=== PATIENT | male | born 1975 | race Caucasian/White ===

== ENCOUNTER 2019-07-12 23:03 | Emergency (ER) | payer SELFPAY ==
[2019-07-12 23:09] VITALS: BP 141/92
[2019-07-12] MEDS ORDERED: IPRATROPIUM/ALBUTEROL 3 ML NEB INH STA (23:32)
--- NOTE | 2019-07-12 23:34 | ED Physician Documentation ---
History of Present Illness - Stated complaint Stated Complaint: SOA - Chief complaint Chief Complaint: Resp - Additonal information Additional information: This is a 43-year-old male with history of asthma who presents with increased work of breathing and wheeze. Patient was on a 10-day cruise, during this time he has not had access to his Advair, but he will fhave this once again starting tomorrow. He also left his inhaler on the boat, and he has had some increased wheezing today since leaving the boat. He thinks that his asthma has been somewhat triggered by a down feather comforter that he has been using. At this time he has a mild wheeze, no chest pain, no fever, no cough, no leg swelling, no history of blood clots. He states that his shortness of breath is very mild at this time, but he wanted to come in and get treatment and a prescription for an inhaler so that is not worsened in the future. No fever. Review of Systems Constitutional: denies: Fever Cardiac: denies: Chest pain / pressure Respiratory: reports: Dyspnea GI: denies: Abdominal Pain PD PAST MEDICAL HISTORY - Past Medical History Past Medical History: Yes Respiratory: Asthma - Past Surgical History Past Surgical History: Yes General: Appendectomy - Present Medications Home Medications: Ambulatory Orders Medication Instructions Recorded Confirmed Albuterol Sulfate [Albuterol 8.5 gm IH 1-2XD 07/12/19 07/12/19 Sulfate Hfa] Fluticasone/Salmeterol [Advair 1 each IH DAILY 07/12/19 07/12/19 250-50 Diskus] RX: Albuterol Sulf [Ventolin Hfa 1 - 2 puffs INH Q4HR PRN #1 inhaler 07/12/19 Inhaler] - Allergies Allergies/Adverse Reactions: Allergies Allergy/AdvReac Type Severity Reaction Status Date / Time No Known Drug Allergies Allergy Verified 07/12/19 23:09 - Social History Does the pt smoke?: No Smoking Status: Never smoker Does the pt drink ETOH?: Yes ETOH Use: Wine Does the pt have substance abuse?: No - Immunizations Immunizations are current?: Yes PD ED PE NORMAL - Vitals Vital signs reviewed: Yes - General General: Alert and oriented X 3, No acute distress - HEENT HEENT: PERRL - Cardiac Cardiac: RRR, No murmur - Respiratory Respiratory: Other (Mild end-expiratory wheeze diffusely.) - Abdomen Abdomen: Non distended - Derm Derm: Warm and dry - Extremities Extremities: No deformity - Neuro Neuro: Alert and oriented X 3 - Psych Psych: Normal mood, Normal affect Results - Vitals Vitals: Vital Signs - 24 hr 07/12/19 07/12/19 07/12/19 23:05 23:36 23:46 Temperature 36.2 C L Heart Rate 71 68 78 Respiratory 18 16 16 Rate Blood Pressure 141/92 H O2 Saturation 98 98 Oxygen O2 Source Room air PD MEDICAL DECISION MAKING - ED course Complexity details: considered differential (Asthma exacerbation, medication refill, allergies, URI, pneumonia) ED course: Patient presenting with mild wheezing in the setting of not having access to his inhaler which he left on a boat. He has some mild end expiratory wheeze on exam, but is talking no respiratory distress. No fever, cough, or signs of pneumonia or other signifcant pulmonary processbeyond asthma. He was given a DuoNeb treatment at which point his symptoms completely resolved, he had no further wheezing, he is feeling well and he was eager to be discharged. I prescribed him an albuterol inhaler, he was given a spacer, and I discussed return precautions with him. He will return to this or another emergency department if he has any further symptoms, otherwise he will follow-up with his primary care provider. Departure - Departure Disposition: 01 Home, Self Care Clinical Impression: Asthma Qualifiers: Asthma severity: mild Asthma persistence: intermittent Asthma complication type: with acute exacerbation Qualified Code(s): J45.21 - Mild intermittent asthma with (acute) exacerbation Condition: Stable Instructions: Asthma Dc Follow-Up: Your,PCP [Other] Prescriptions: RX: Albuterol Sulf [Ventolin Hfa Inhaler] 1 - 2 puffs INH Q4HR PRN #1 inhaler PRN Reason: Shortness Of Air/Wheezing Comments: If you have any worsening shortness of breath, or any other new or concerning symptoms please return to an emergency department. Discharge Date/Time: 07/12/19 23:46
== END 2019-07-12 23:46 | disposition home or self-care (01) ==
LOC: ED 23:03
DX: J45.21 Mild intermittent asthma with (acute) exacerbation (principal)
CPT/HCPCS: 94640; 99283; 99284